=== PATIENT | female | born 1965 | race Caucasian/White ===

== ENCOUNTER → 2016-09-02 | Outpatient (CLI) | payer OTHER ==
[~2016-09-02] MED LIST: CALC-20 PO; FLAX12003 PO; LISI-461 PO; LISI-729 PO; LISI10TA PO; OMEG10007 PO; SUPER FOOD PO; TRIA37.5 PO; TRIA75TA53 PO; vit B PO
== END | disposition home or self-care (01) ==
LOC: C.PATHSPEC 17:42
PROVIDERS: ATTEND Obstetrics & Gynecology
DX: N92.1 Excessive and frequent menstruation with irregular cycle (principal)

== ENCOUNTER → 2016-09-02 | Outpatient (CLI) | payer OTHER | LOC: C.PAPS 08:21 | PROVIDERS: ATTEND Obstetrics & Gynecology | DX: R60.0 Localized edema (principal) ==

== ENCOUNTER 2016-11-26 12:06 | Emergency (ER) | payer OTHER ==
[~2016-11-26] VITALS: Ht 157.5 cm; Wt 104.3 kg
[~2016-11-26 12:06] MED LIST changes: -LISI-461 PO; -LISI10TA PO; -OMEG10007 PO; -SUPER FOOD PO; -TRIA75TA53 PO
[2016-11-26 12:11] VITALS: TEMP 36.8; Ht 157.5 cm; Wt 104.3 kg
[2016-11-26 12:20] VITALS: O2SAT 97
[2016-11-26] MEDS ORDERED: SODIUM CHLORIDE 0.9% 1000ML 500 ML IV STA (12:21)
[2016-11-26] MEDS ORDERED: LABETALOL HCL IV 5 MG/ML 20ML IV STA (12:21)
[2016-11-26 12:37] LABS: BASO % 0.2 %; BASO ABS # 0.01 K/uL (0-0.2); COMPLETE YES; EOS % 1.6 %; HEMATOCRIT 43.4 % (37-47); IG% 0.2 %; LYMPH % 31.5 %; LYMPH ABS # 1.53 K/uL (1.2-3.4); MEAN CELL VOLUME 90.4 fL (80-100); MEAN CORPUSCULAR HGB CONC 34.3 g/dl (32-36); MEAN PLATELET VOLUME 10.2 fL (7.4-10.4); MONO % 8.2 %; NEUT % 58.3 %; PLATELET COUNT 229 K/uL (130-400); WHITE BLOOD COUNT 4.85 K/uL (4.8-10.8)
--- NOTE | 2016-11-26 12:43 | EMERGENCY ROOM VISIT NOTE ---
History Report prepared by Talia: Vasile Sanford Under the Supervision of: Dr. Jossue Adamson M.D. First contact with patient: 12:16 Chief Complaint: UNRESPONSIVE Stated Complaint: HYPERTENSION History of Present Illness The patient is a 51 year old female who presents to the Emergency Room with complaints of persistent hypertension beginning shortly prior to arrival. Her blood pressure was found to be 170/102. Per nursing staff, the patient became hypertensive after receiving several medications in the operating room. She was having a cervical ablation. The medications she received were 5 mg Valium, 1 tablet of 5/325 Vicodin, and 60 mg of Toradol. Nursing staff notes that the patient had an unresponsive episode while receiving numbing of her cervix. The patient's notes that the patient has been very worried about this procedure. He states that she appears very fatigued and weak currently. Source of History: spouse/significant other, nursing staff Onset: Shortly prior to arrival Symptom Intensity: 170/102 Quality: other (hypertension) Timing: other (persistent) Associated Symptoms: + fatigue, + weakness Review of Systems See HPI for pertinent positives & negatives. A total of 10 systems reviewed and were otherwise negative. Past Medical & Surgical Medical Problems: (1) Asthma (2) Benign hypertension (3) Family History No pertinent family history stated. Social History Smoking Status: Never Smoker Alcohol Use: none Drug Use: none Marital Status: Housing Status: lives with family Occupation Status: unemployed Current/Historical Medications Scheduled Lisinopril (Prinivil), 10 MG PO QD@08 Triamterene/Hctz (Dyazide 37.5MG/25MG), 1 TAB PO DAILY Allergies Coded Allergies: No Known Allergies (Unverified , 03/07/12) Physical Exam Vital Signs Date Time Temp Pulse Resp B/P (MAP) Pulse Ox O2 Delivery O2 Flow Rate FiO2 11/26/16 15:07 81 16 161/96 97 Room Air 11/26/16 14:11 81 16 157/86 97 Room Air 11/26/16 13:47 65 16 150/99 Room Air 11/26/16 13:20 71 14 161/100 93 Room Air 11/26/16 12:49 68 11/26/16 12:44 82 20 170/115 95 Room Air 11/26/16 12:36 67 14 175/94 94 Room Air 11/26/16 12:20 97 Room Air 11/26/16 12:11 36.8 100 15 141/114 98 Room Air Physical Exam GENERAL: Patient is in no acute distress. HEENT: No acute trauma, normocephalic atraumatic, mucous membranes moist, no nasal congestion, no scleral icterus. PERRL. NECK: No stridor, no adenopathy, no meningismus, trachea is midline. LUNGS: Clear to auscultation bilaterally, no wheeze, no rhonchi, breath sounds equal. HEART: Without murmurs gallops or rubs, regular rate and rhythm. ABDOMEN: Soft, nontender, bowel sounds positive, no hernias, no peritonitis. EXTREMITIES: No cyanosis or edema, full range of motion of all the joints without pain or difficulty, no signs for acute trauma. NEUROLOGIC: Somnolent but arousable to voice. Follows commands. Equal internal medicine nurse practitioner strength. No focal motor deficits. SKIN: No rash, no jaundice, no diaphoresis. Medical Decision & Procedures ER Provider Diagnostic Interpretation: Radiology results as stated below per my review and radiologist interpretation: CT OF THE HEAD WITHOUT CONTRAST FINDINGS: No acute intracranial hemorrhage, midline shift or mass effect is present. Ventricular system is normal. Basilar cisterns are patent. There are no extra-axial collections. Bunn-white differentiation is maintained. There are no findings to suggest acute dural sinus thrombosis or acute territorial infarct. There are no significant calvarial abnormalities. Trace right mastoid air cell fluid is noted. IMPRESSION: 1. No acute intracranial findings. 2. Trace fluid within the right mastoid air cells. Electronically signed by: Drew Love M.D. CHEST ONE VIEW PORTABLE FINDINGS: No pneumothorax. No pleural effusions. The heart is borderline enlarged. No focal lung consolidations to suggest pneumonia. Mild central pulmonary vascular congestion without overt edema. IMPRESSION: Prominence of the cardiac silhouette with mild central pulmonary vascular congestion without overt edema. Electronically signed by: Avila Breen M.D. Laboratory Results 11/26/16 12:15 Red Blood Count 4.80, Mean Corpuscular Volume 90.4, Mean Corpuscular Hemoglobin 31.0, Mean Corpuscular Hemoglobin Concent 34.3, Mean Platelet Volume 10.2, Neutrophils (%) (Auto) 58.3, Lymphocytes (%) (Auto) 31.5, Monocytes (%) (Auto) 8.2, Eosinophils (%) (Auto) 1.6, Basophils (%) (Auto) 0.2, Neutrophils # (Auto) 2.82, Lymphocytes # (Auto) 1.53, Monocytes # (Auto) 0.40, Eosinophils # (Auto) 0.08, Basophils # (Auto) 0.01 11/26/16 12:15 Test 11/26/16 12:15 11/26/16 12:21 White Blood Count 4.85 K/uL (4.8-10.8) Red Blood Count 4.80 M/uL (4.2-5.4) Hemoglobin 14.9 g/dL (12.0-16.0) Hematocrit 43.4 % (37-47) Mean Corpuscular Volume 90.4 fL (80-100) Mean Corpuscular Hemoglobin 31.0 pg (25-34) Mean Corpuscular Hemoglobin Concent 34.3 g/dl (32-36) Platelet Count 229 K/uL (130-400) Mean Platelet Volume 10.2 fL (7.4-10.4) Neutrophils (%) (Auto) 58.3 % Lymphocytes (%) (Auto) 31.5 % Monocytes (%) (Auto) 8.2 % Eosinophils (%) (Auto) 1.6 % Basophils (%) (Auto) 0.2 % Neutrophils # (Auto) 2.82 K/uL (1.4-6.5) Lymphocytes # (Auto) 1.53 K/uL (1.2-3.4) Monocytes # (Auto) 0.40 K/uL (0.11-0.59) Eosinophils # (Auto) 0.08 K/uL (0-0.5) Basophils # (Auto) 0.01 K/uL (0-0.2) RDW Standard Deviation 41.1 fL (36.4-46.3) RDW Coefficient of Variation 12.5 % (11.5-14.5) Immature Granulocyte % (Auto) 0.2 % Immature Granulocyte # (Auto) 0.01 K/uL (0.00-0.02) Anion Gap 8.0 mmol/L (3-11) Est Creatinine Clear Calc Drug Dose 79.5 ml/min Estimated GFR () 79.5 Estimated GFR (Non- 68.6 BUN/Creatinine Ratio 14.7 (10-20) Calcium Level 10.1 mg/dl (8.5-10.1) Total Bilirubin 0.5 mg/dl (0.2-1) Aspartate Amino Transf (AST/SGOT) 25 U/L (15-37) Alanine Aminotransferase (ALT/SGPT) 37 U/L (12-78) Alkaline Phosphatase 57 U/L (45-117) Troponin I 0.028 ng/ml (0-0.045) Total Protein 8.2 gm/dl (6.4-8.2) Albumin 4.2 gm/dl (3.4-5.0) Globulin 4.0 gm/dl (2.5-4.0) Albumin/Globulin Ratio 1.1 (0.9-2) Thyroid Stimulating Hormone (TSH) 2.150 uIu/ml (0.300-4.500) Human Chorionic Gonadotropin, Qual NEG (NEG) Laboratory results reviewed by me. Medications Administered Medications (Trade) Dose Ordered Sig/Kelsey Route Start Time Stop Time Status Last Admin Dose Admin Sodium Chloride 500 ml @ 999 mls/hr Q31M STAT IV 11/26/16 12:21 11/26/16 12:51 DC 11/26/16 12:28 999 MLS/HR Labetalol HCl (Normodyne IV) 20 mg NOW STAT IV 11/26/16 12:21 11/26/16 12:24 DC 11/26/16 12:30 20 MG Hydralazine HCl (HydrALAZINE INJ) 10 mg NOW STAT IV 11/26/16 13:34 11/26/16 13:35 DC 11/26/16 13:47 10 MG Lisinopril (Zestril Tab) 10 mg NOW STAT PO 11/26/16 14:50 11/26/16 14:58 DC 11/26/16 15:05 10 MG ECG Indication: other (hypertension) Rate (beats per minute): 76 Rhythm: normal sinus Findings: no acute ischemic change, no ectopy, other (potential old septal infarct) ED Course 1216: The patient was evaluated in room A11B. A complete history and physical exam was performed. 1221: Ordered Normodyne 20 mg IV, Sodium Chloride 500 ml @ 999 mls/hr IV. 1334: Ordered Hydralazine Inj 10 mg IV. 1430: I reassessed the patient. Her OBGN is at bedside speaking with her. 1450: Ordered Zestril 10 mg PO. 1510: Reevaluated the patient. Discussed results and discharge instructions: she verbalized understanding and agreement. The patient is ready for discharge. Medical Decision The patient is a 51 year old female who presents to the ED with complaints of hypertension. Differential diagnoses considered include medication reaction, stroke, anxiety, dehydration, electrolyte imbalance, thyroid disorder, hypertension, infection. There is no leukocytosis or concerning anemia. No significant electrolyte abnormality, kidney failure or hepatitis. The patient appears to be in a euthyroid state. testing is negative. EKG shows a normal sinus rhythm, no acute ischemic change. Cardiac enzyme testing times one is not consistent with acute cardiac injury. Chest film does not show pneumonia or mediastinal widening. There was no concerning CHF. Brain CT shows no acute bleed or mass effect. The patient received IV saline, she was given IV labetalol and IV hydralazine. She received oral lisinopril. The patient was watched here for several hours, she became awake and alert, she has no complaints at the present time. I think her presentation was secondary to the medication she received. This led to the somnolence. The blood pressure elevation I think is acute on chronic. Sounds like she has had some high blood pressure readings in the past. She used to be on lisinopril but this was stopped about a year ago. I spoke with her doctor's office. They did suggest restarting the lisinopril. The patient is being discharged with outpatient follow-up. She is stable for discharge. Medication Reconcilliation Current Medication List: was personally reviewed by me Blood Pressure Screening Patient's blood pressure: Elevated blood pressure Blood pressure disposition: Referred to PCP Consults Time Called: 1440 Consulting Physician: YAN from [facility] Returned Call: [phone] Discussed the patient's case. She recommends starting on Lisinopril. Impression Primary Impression: Change in mental state Additional Impression: HTN (hypertension) Scribe Attestation The scribe's documentation has been prepared under my direction and personally reviewed by me in its entirety. I confirm that the note above accurately reflects all work, treatment, procedures, and medical decision making performed by me. Departure Information Dispostion Home / Self-Care Prescriptions Lisinopril (Prinivil) 10 Mg Tab 10 MG PO QD@08 for 14 Days, #14 TAB 3 Refills Prov: Jossue Adamson M.D. 11/26/16 Referrals No Doctor, Assigned (PCP) Forms HOME CARE DOCUMENTATION FORM, IMPORTANT VISIT INFORMATION, WORK / SCHOOL INSTRUCTIONS Patient Instructions My [facility] [employer] Additional Instructions restart the Lisinopril 1 tab daily see your doctor this week for a recheck of the blood pressure testing today was all ok return if worsening Problem Qualifiers
--- NOTE | 2016-11-26 12:53 | DIAGNOSTIC IMAGING REPORT ---
CHEST ONE VIEW PORTABLE HISTORY: EVALUATE ALTERED MENTAL STATUS/WEAKNESS COMPARISON: Chest 03/07/2012. FINDINGS: No pneumothorax. No pleural effusions. The heart is borderline enlarged. No focal lung consolidations to suggest pneumonia. Mild central pulmonary vascular congestion without overt edema. IMPRESSION: Prominence of the cardiac silhouette with mild central pulmonary vascular congestion without overt edema. Electronically signed by: Avila Breen M.D. 11/26/2016 12:52 PM Dictated Date/Time: 11/26/2016 12:48 PM
[2016-11-26 12:54] LABS: BUN/CREATININE RATIO 14.7 (10-20); CALCIUM 10.1 mg/dl (8.5-10.1); CREATININE 0.97 mg/dl (0.60-1.20); POTASSIUM 3.5 mmol/L (3.5-5.1)
[2016-11-26 13:05] LABS: ALB/GLOB RATIO 1.1 (0.9-2); THYROID STIMULATING HORMONE 2.15 uIu/ml (0.300-4.500)
--- NOTE | 2016-11-26 13:13 | DIAGNOSTIC IMAGING REPORT ---
CT OF THE HEAD WITHOUT CONTRAST CLINICAL HISTORY: Altered mental status. Weakness. Hypertension. COMPARISON STUDY: No previous studies for comparison. CT DOSE: 537.48 mGy.cm TECHNIQUE: Helical axial images of the head were obtained without IV contrast. Automated exposure control was utilized for the study. A dose lowering technique was utilized adhering to the principles of ALARA. FINDINGS: No acute intracranial hemorrhage, midline shift or mass effect is present. Ventricular system is normal. Basilar cisterns are patent. There are no extra-axial collections. Bunn-white differentiation is maintained. There are no findings to suggest acute dural sinus thrombosis or acute territorial infarct. There are no significant calvarial abnormalities. Trace right mastoid air cell fluid is noted. IMPRESSION: 1. No acute intracranial findings. 2. Trace fluid within the right mastoid air cells. Electronically signed by: Drew Love M.D. 11/26/2016 1:12 PM Dictated Date/Time: 11/26/2016 12:58 PM
[2016-11-26 13:14] LABS: PREG INTERNAL NEGATIVE QC NEG CLEAR BACKGROUND; PREG INTERNAL POSITIVE QC POS CONTROL LINE
[2016-11-26] MEDS ORDERED: HydrALAZINE HCL 20 MG/ML VIAL IV STA (13:34)
[2016-11-26] MEDS ORDERED: LISINOPRIL 10 MG TAB PO STA (14:50)
[2016-11-26 15:07] VITALS: BP 161/96; PULSE 81; O2SAT 97
[2016-11-26] MEDS ORDERED: LISI10TA PO (15:11)
== END 2016-11-26 15:20 | disposition home or self-care (01) ==
LOC: EDBD 12:06 → C.EDA 12:07
DX: R41.82 Altered mental status, unspecified (principal); I10 Essential (primary) hypertension; J45.909 Unspecified asthma, uncomplicated; Z79.899 Other long term (current) drug therapy

== ENCOUNTER 2017-04-29 20:58 | Emergency (ER) | payer OTHER ==
[~2017-04-29] VITALS: Ht 154.9 cm; Wt 104.0 kg
[~2017-04-29 20:58] MED LIST changes: -CALC-20 PO; -FLAX12003 PO; +LISI-461 PO; -LISI-729 PO; +OMEG10007 PO; +SUPER FOOD PO; -TRIA37.5 PO; +TRIA75TA53 PO; -vit B PO
[2017-04-29 21:02] VITALS: TEMP 36.9; Ht 154.9 cm; Wt 104.0 kg
[2017-04-29] MEDS ORDERED: ALBUT/IPRATROP 3MG/0.5MG NEB 3 ML VIAL INH STA (22:26)
[2017-04-29] MEDS ORDERED: BENZONATATE 100MG CAP PO ONE (22:30)
[2017-04-29] MEDS ORDERED: AMOX875T PO (22:55)
--- NOTE | 2017-04-29 23:03 | DIAGNOSTIC IMAGING REPORT ---
CHEST ONE VIEW PORTABLE CLINICAL HISTORY: Cough. COMPARISON STUDY: Chest radiograph November 26, 2016. FINDINGS: Patient is rotated. No pneumothorax or pleural effusion is noted. Increased bibasilar markings likely reflect atelectasis or normal vessels. There is no evidence for pulmonary edema. There is no lobar consolidation. Cardiomediastinal silhouette is stable allowing for patient rotation. IMPRESSION: No acute cardiopulmonary findings. Electronically signed by: Drew Love M.D. 04/29/2017 11:02 PM Dictated Date/Time: 04/29/2017 10:58 PM
[2017-04-30] MEDS ORDERED: ALBUT/IPRATROP 3MG/0.5MG NEB 3 ML VIAL INH STA (00:26)
[2017-04-30] MEDS ORDERED: BENZ100C18 PO (01:27)
[2017-04-30] MEDS ORDERED: PRED50TA PO (01:27)
[2017-04-30] MEDS ORDERED: ALBUTEROL HFA 8 GM INHALER INH ONE (01:30)
[2017-04-30 01:38] VITALS: BP 154/89; PULSE 92; O2SAT 94
--- NOTE | 2017-04-30 02:17 | EMERGENCY ROOM VISIT NOTE ---
History Report prepared by Talia: Aj Cruz Under the Supervision of: Dr. Jose Lorenzo M.D. First contact with patient: 22:09 Chief Complaint: COUGH Stated Complaint: SEVERE COUGH Nursing Triage Summary: pt c/o cough for past 2wks, seen and placed on antibiotics on tuesday. History of Present Illness The patient is a 52 year old female who presents to the Emergency Room with complaints of worsening chest tightness since April 27, 2017. She states that she has had a cough for two weeks. She states her symptoms have worsened. Per the patient has had a prior history of wheezing and difficulty breathing. She denies any current shortness of breath. She has nodules on her lungs. She has a history of asthmatic bronchitis. She has had inhalers, though she has not used them for years. She reports vomiting just prior to arrival. She ate a piece of bread to take her medication, though she vomited shortly after. She states that she feels really tired and somewhat nauseated. She was seen by her PCP April 27, 2017 and was given Augmentin. She reports a rash all over her body, though she reports it resolved. Pt denies LOC, headache, fevers, chills, diaphoresis, visual changes, neck pain, abdominal pain, back pain, melena, hematochezia, urinary symptoms, numbness, weakness, or other complaints. Source of History: patient Position: chest Quality: other (tightness) Timing: worsening Associated Symptoms: + nausea, + vomiting, No SOB Note: She reports tiredness. Review of Systems See HPI for pertinent positives and negatives. A total of ten systems were reviewed and were otherwise negative. Past Medical & Surgical Medical Problems: (1) Asthma (2) Benign hypertension (3) Lung nodule (4) Family History Cancer Hypertension Kidney disease Kidney stones Social History Smoking Status: Never Smoker Smokeless Tobacco Use: No Alcohol Use: none Drug Use: none Marital Status: Housing Status: lives with family Occupation Status: unemployed Current/Historical Medications Scheduled Amoxicillin & Pot Clavulanate (Augmentin 875-125 mg), 1 TAB PO BID Prednisone (Prednisone), 50 MG PO DAILY Triamterene/Hctz (Maxzide 75MG/50MG), 1 TAB PO QAM [Super Food], 1 TAB PO QAM Scheduled PRN Benzonatate (Tessalon Perles), 1 CAP PO TID PRN for Cough Lisinopril (Zestril), 10 MG PO DAILY PRN for HIGH BP Allergies Coded Allergies: No Known Allergies (Unverified , 01/19/17) Physical Exam Vital Signs Date Time Temp Pulse Resp B/P (MAP) Pulse Ox O2 Delivery O2 Flow Rate FiO2 04/30/17 01:38 92 20 154/89 94 Room Air 04/30/17 01:23 93 96 04/30/17 01:08 89 92 04/30/17 00:53 97 94 04/30/17 00:38 86 95 04/30/17 00:23 94 95 04/30/17 00:18 85 91 Room Air 04/30/17 00:03 94 93 04/30/17 00:01 158/95 04/29/17 23:48 79 93 04/29/17 23:37 176/95 04/29/17 23:33 84 93 04/29/17 23:28 80 92 Room Air 04/29/17 23:13 84 91 04/29/17 22:58 86 95 04/29/17 22:53 87 20 96 Nebulizer 04/29/17 21:02 36.9 96 20 195/110 94 Room Air Physical Exam GENERAL: Awake, alert, well-appearing, in no distress. Heavy cough present. HENT: Normocephalic, atraumatic. Oropharynx unremarkable. EYES: Normal conjunctiva. Sclera non-icteric. NECK: Supple. No nuchal rigidity. FROM. No masses. RESPIRATORY: Clear to auscultation. Expiratory wheezes bilaterally. CARDIAC: Normal rate. Normal rhythm. No murmurs. No rubs. Extremities warm and well perfused. Pulses equal. No JVD. GI: Soft, non-distended. No tenderness to palpation. No rebound or guarding. No masses. RECTAL: Deferred. MUSCULOSKELETAL: Atraumatic. Chest examination reveals no tenderness. The back is symmetrical on inspection without obvious abnormality. There is no CVA tenderness to palpation. No joint edema. LOWER EXTREMITIES: Calves are equal size bilaterally and non-tender. No edema. No discoloration. NEURO: Normal sensorium. No sensory or motor deficits noted. SKIN: Faint red rash on lower chest and anterior neck. No jaundice noted. Medical Decision & Procedures ER Provider Diagnostic Interpretation: Radiology results as stated below per my review and radiologist interpretation: CHEST ONE VIEW PORTABLE CLINICAL HISTORY: Cough. COMPARISON STUDY: Chest radiograph November 26, 2016. FINDINGS: Patient is rotated. No pneumothorax or pleural effusion is noted. Increased bibasilar markings likely reflect atelectasis or normal vessels. There is no evidence for pulmonary edema. There is no lobar consolidation. Cardiomediastinal silhouette is stable allowing for patient rotation. IMPRESSION: No acute cardiopulmonary findings. Electronically signed by: Drew Love M.D. 04/29/2017 11:02 PM Dictated Date/Time: 04/29/2017 10:58 PM Medications Administered Medications (Trade) Dose Ordered Sig/Kelsey Route Start Time Stop Time Status Last Admin Dose Admin Albuterol/ Ipratropium (Duoneb) 3 ml NOW STAT INH 04/29/17 22:26 04/29/17 22:30 DC 04/29/17 22:38 3 ML Benzonatate (Tessalon Perles Cap) 100 mg NOW ONCE PO 04/29/17 22:30 04/29/17 22:31 DC 04/29/17 22:38 100 MG Prednisone (PredniSONE TAB) 60 mg NOW STAT PO 04/29/17 22:32 04/29/17 22:33 DC 04/29/17 22:38 60 MG Albuterol/ Ipratropium (Duoneb) 3 ml NOW STAT INH 04/30/17 00:26 04/30/17 00:27 DC 04/30/17 00:29 3 ML Albuterol (Ventolin Hfa Inhaler) 2 puffs NOW ONCE INH 04/30/17 01:30 04/30/17 01:31 DC 04/30/17 01:43 60 PUFFS ED Course 2225: The patient was evaluated in room B3B. A complete history and physical exam was performed. 2226: Ordered DuoNeb 3 ml INH 2230: Ordered Benzonatate 100 mg PO 2232: Ordered Prednisone 60 mg PO 0020: I reassessed the patient at this time. She is feeling better. The patient' s oxygen saturation is in the low 90s. 0026: Ordered DuoNeb 3 ml INH 0120: I reassessed the patient at this time. She is feeling better and resting comfortably. I discussed the results and treatment plan with the patient. I answered all pertaining questions that she had. She expressed understanding and verbalized agreement. The patient will be discharged home. 0130: Ordered Albuterol 2 puffs INH Medical Decision Triage Nursing notes reviewed. The patient's presentation and history were concerning for cough and respiratory issues. Etiologies such as pneumonia, COPD, reactive airway disease, CHF, cardiac ischemia, pulmonary embolism, pneumothorax, musculoskeletal, infections, gastrointestinal, as well as others were entertained. The patient was evaluated. She was wheezing. Her blood pressure was moderately elevated but this did improve as her symptoms diminished. Her O2 saturations were mildly diminished. She was given an oral dose of prednisone, Tessalon, and a DuoNeb. She and her significant other note having issues with asthmatic bronchitis in the past. She has been taking Augmentin. Chest imaging was performed and revealed no evidence of pneumonia. She was reassessed and was feeling better although her saturations were still mildly low. She was given a second DuoNeb. On additional reassessment she was feeling much better. Her blood pressure was improved and her oxygen saturations were in the mid 90s. She was breathing easier. I discussed conservative management with her. She will be given albuterol MDI. Prednisone will be prescribed. I also discussed a small prescription of Tessalon Perles for use as needed regarding the cough. She has a follow-up with her primary physician this coming week. If she worsens in any way she will come back to the emergency department for reevaluation. Given the lack of pneumonia on x- ray this seems to be consistent with an asthmatic bronchitis.I gave my usual and customary discussion regarding this issue. By the evaluation outlined above other emergent etiologies such as those listed in the differential, as well as others, were deemed relatively unlikely. The patient was educated about the findings as listed above. All questions were answered and the patient was pleased with the treatment. Return instructions were outlined and the patient was discharged in stable condition. The patient was referred to her PCP for follow-up for a recheck of the current condition. Medication Reconcilliation Current Medication List: was personally reviewed by me Blood Pressure Screening Patient's blood pressure: Elevated blood pressure Blood pressure disposition: Referred to PCP Impression Primary Impression: Asthmatic bronchitis Scribe Attestation The scribe's documentation has been prepared under my direction and personally reviewed by me in its entirety. I confirm that the note above accurately reflects all work, treatment, procedures, and medical decision making performed by me. Departure Information Dispostion Home / Self-Care Prescriptions Benzonatate (TESSALON PERLES) 100 Mg Cap 1 CAP PO TID Y for Cough, #12 CAP Prov: Jose Lorenzo MD 04/30/17 Prednisone (Prednisone) 50 Mg Tab 50 MG PO DAILY for 4 Days, #4 TAB Prov: Jose Lorenzo MD 04/30/17 Referrals Jennifer. Dave E. PA-C (PCP) Forms HOME CARE DOCUMENTATION FORM, IMPORTANT VISIT INFORMATION Patient Instructions My [facility] Additional Instructions Albuterol Inhaler: Take 2 puffs four times daily for five days, then as needed. Prednisone 50mg: Once daily until the prescription is finished. It is best to take this earlier in the day as some patients note occasional difficulty falling asleep when taken in the late evening. Tessalon Perles 100 mg: Take one 3 times a day as needed for cough. Do not chew. Swallow whole. Acetaminophen(Tylenol) may be used for fever or pain. Use 1000mg every six hours as needed. Avoid using more than 4000mg in a 24 hour period. (AND/OR) Ibuprofen(Motrin, Advil) may be used for fever or pain. Use 600mg every six hours as needed. Take with food. Avoid using more than 2400mg in a 24 hour period. Do not use 2400mg per day for more than three consecutive days without physician direction. Prolonged inappropriate use can lead to stomach upset or ulcers. Rest and drink plenty of fluids. Avoid smoke/smoking, fumes, dust, or any triggers in the past that may have affected your breathing. Continue current medications. Return to the ER for chest pain, difficulty breathing, fevers, vomiting, worsening of your condition, or as needed. Follow up with your primary physician this coming week for a recheck of your current condition. Also have them recheck your blood pressure. Problem Qualifiers Primary Impression: Asthmatic bronchitis Asthma severity: moderate
== END 2017-04-30 01:45 | disposition home or self-care (01) ==
LOC: C.EDB 20:59
DX: J45.902 Unspecified asthma with status asthmaticus (principal); I10 Essential (primary) hypertension